=== PATIENT | female | born 1995 | race Caucasian/White ===

== ENCOUNTER 2022-05-25 19:28 | Inpatient (IN) | payer OTHER, SELFPAY ==
[2022-05-25] VITALS (27 sets, daily range): BP systolic 104–145; BP diastolic 53–97; PULSE 74–168; TEMP 36.6; O2SAT 99–100
[2022-05-25 21:52] LABS: Basophils Absolute Auto 0.1 K/mm3 (0.0-0.1); Basophils Percent Auto 0.4 % (0.2-1.2); Eosinophils Absolute Auto 0.1 K/mm3 (0-0.3); Eosinophils Percent Auto 0.6 % (0-4.4); Hematocrit 37.4 % (37.0-47.0); Hemoglobin 12.5 g/dL (12.0-15.0); Immature Granulocyte Absolute 0.28 K/mm3 (0.00-0.031); Immature Granulocyte Percent A 1.9 % (0-0.5); Lymphocytes Absolute Auto 2.38 K/mm3 (0.9-3.2); Lymphocytes Percent Auto 16.2 % (18.3-44.2); Mean Corpuscular HGB Conc 33.4 g/dl (32-36); Mean Corpuscular Hemoglobin 29.5 pg (26-34); Mean Corpuscular Volume 88.2 fl (80-100); Mean Platelet Volume 10.4 fl (7.4-10.4); Monocytes Absolute Auto 1.5 K/mm3 (0.1-0.6); Monocytes Percent Auto 9.8 % (2.6-8.5); Neutrophils Absolute Auto 10.5 K/mm3 (1.3-6.7); Neutrophils Percent Auto 71.1 % (45.5-73.1); Platelet Count Result 258 k/mm3 (150-375); Red Blood Count 4.24 M/mm3 (4.2-5.4); Red Cell Distribution Width 13.4 % (11.5-14.5); White Blood Count 14.7 K/mm3 (4.5-10.0)
[2022-05-25] MEDS: LACTATED RINGERS 1,000 ML 125 ML IV CONT ×2 (21:54→22:19)
--- NOTE | 2022-05-25 22:16 | WPDANESEPP ---
Anes - Eval Pre Procedure Procedure: Labor epidual Date/Time: 05/25/22 22:16 Surgeon: Damon Preop Diagnosis: Abd pain with contractions Pre Op Diagnosis: labor Patient Data Age: 27 Gender: F Height: Weight: Last Vital Signs Pulse 86 05/25/22 22:01 BP 132/85 05/25/22 22:01 Allergies Allergy/AdvReac Type Severity Reaction Status Date / Time No Known Allergies Allergy Mild Verified 05/23/22 08:30 Home Medications Medication Instructions Recorded Confirmed Type vitamins-iron fumarate 65 1 tablet PO DAILY 12/18/21 05/23/22 History mg iron-folic acid 1 mg tablet ferrous sulfate 325 mg (65 mg 325 mg PO DAILY 04/11/22 05/23/22 History iron) tablet Laboratory Tests 05/25/22 05/25/22 21:45 21:45 WBC 14.7 K/mm3 H K/mm3 (4.5-10.0) RBC 4.24 M/mm3 M/mm3 (4.2-5.4) Hgb 12.5 g/dL g/dL (12.0-15.0) Hct 37.4 % % (37.0-47.0) MCV 88.2 fl fl (80-100) MCH 29.5 pg pg (26-34) MCHC 33.4 g/dl g/dl (32-36) RDW 13.4 % % (11.5-14.5) Plt Count 258 k/mm3 k/mm3 (150-375) MPV 10.4 fl fl (7.4-10.4) Immature Gran % (Auto) 1.9 % H % (0-0.5) Neut % (Auto) 71.1 % % (45.5-73.1) Lymph % (Auto) 16.2 % L % (18.3-44.2) [place] % (Auto) 9.8 % H % (2.6-8.5) Eos % (Auto) 0.6 % % (0-4.4) Baso % (Auto) 0.4 % % (0.2-1.2) Lymph # (Auto) 2.38 K/mm3 K/mm3 (0.9-3.2) [place] # (Auto) 1.5 K/mm3 H K/mm3 (0.1-0.6) Eos # (Auto) 0.1 K/mm3 K/mm3 (0-0.3) Baso # (Auto) 0.1 K/mm3 K/mm3 (0.0-0.1) Abs Immat Gran (auto) 0.28 K/mm3 H K/mm3 (0.00-0.031) Absolute Neuts (auto) 10.5 K/mm3 H K/mm3 (1.3-6.7) Absolute Nucleated RBC 0.0 K/mm3 K/mm3 (0.0-0.012) Nucleated RBC % 0.0 % % (0.0-0.2) RPR Pending HCG: positive Patient hx anesthesia problems: none Family hx anesthesia problems: none Results Review: All pre-operative results and documents have been reviewed as part of the pre-operative evaluation. 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
[2022-05-26] VITALS (31 sets, daily range): BP systolic 80–128; BP diastolic 49–81; PULSE 63–126; RESP 18; TEMP 36.2–37.2; O2SAT 97–100
[2022-05-26] MEDS: ONDANSETRON INJ 4 MG/2 ML VIAL IV PUSH (01:10)
[2022-05-26] MEDS: LACTATED RINGERS 1,000 ML 125 ML IV CONT (02:05)
--- NOTE | 2022-05-26 07:11 | WPDOBADMIT ---
Obstetrics - Admit Note Admission Note: record reviewed. No pertinent additions to the history and/or any subsequent changes in the physical findings that are not consistent with the expected course of the were found. Additions to the history and/or subsequent changes in the physical findings follow. None.Here at 38 4/7 weeks in labor with SROM. Progressed well. C/P on my arrival.
--- NOTE | 2022-05-26 07:12 | PM.OBPRVD ---
OB - Delivery Note Procedure Delivery date: 05/26/22 Procedure: Induction method: None Delivery monitor: External FHT and External Uterine Route of delivery: Laceration Description: Periurethral (above urethra) and Perineal - 2nd Degree Delivery repair: vicryl (3-0 ) Specimen: Yes Quantitative Blood Loss (ml): 300 Anesthesia type: Epidural Disposition: Floor Narrative: red rubber catheter placed for laceration repair above urethra Baby Date of : 05/26/22 Weeks of gestation at delivery: 38 Infant gender: Female Weight (pounds): 6 Weight (ounces): 5 presentation: vertex position: Right Occiput Anterior Placenta delivery description: Spontaneous Cord Vessel Description: 3 Vessels, Nuchal Cord (tight-delivered through) and Delayed Cord Clamping score one minute: 9 score five minutes: 9
--- NOTE | 2022-05-26 07:14 | P.DS_ITS ---
DS: Admitting Diagnosis Discharge Date 05/27/22 Admitting Diagnosis IUP 38 4/7 wks in labor with SROM DS: Discharge Diagnosis Discharge Diagnosis (1) (normal spontaneous vaginal delivery): Code(s): O80 - Encounter for full-term uncomplicated delivery Status: Acute OB - DS: Summary OB Procedures : Ultrasound OB Procedures Intrapartum: Spontaneous Vag Delivery OB Procedures: : None Peripartum Data Delivery Method: Natural Vaginal Laceration Description: Periurethral (above urethra) and Perineal - 2nd Degree complications: none Status at Discharge Functional status at discharge: independent ambulation Overall status at discharge: patient is progressing back to baseline Time Spent with Patient Time attestation: Total time spent providing and/or coordinating discharge services: DS: Data Data Completed and Pending Labs on day of discharge: Labs from last 24 hours 05/25/22 05/25/22 05/25/22 21:45 21:45 21:45 WBC 14.7 H RBC 4.24 Hgb 12.5 Hct 37.4 MCV 88.2 MCH 29.5 MCHC 33.4 RDW 13.4 Plt Count 258 MPV 10.4 Immature Gran % (Auto) 1.9 H Neut % (Auto) 71.1 Lymph % (Auto) 16.2 L [place] % (Auto) 9.8 H Eos % (Auto) 0.6 Baso % (Auto) 0.4 Lymph # (Auto) 2.38 [place] # (Auto) 1.5 H Eos # (Auto) 0.1 Baso # (Auto) 0.1 Abs Immat Gran (auto) 0.28 H Absolute Neuts (auto) 10.5 H Absolute Nucleated RBC 0.0 Nucleated RBC % 0.0 RPR Pending Blood Type A Positive Antibody Screen Negative Discharge Plan Discharge Attending physician on discharge: Quinn Jose Discharging Clinician: Sobeida Guillen Anticipated Discharge Date/Time: 05/27/22 07:15 Patient Disposition: Home, Self-Care Activity: may shower and pelvic rest Diet: regular Patient Instructions: Antibiotic Form Stand Alone Forms: General Discharge Information Follow-up/Referrals: Quinn Jose MD [Physician] - Call for Appointment Discharge Medications: New norethindrone (contraceptive) 0.35 mg tablet 0.35 mg PO DAILY Qty: 84 0RF Rx Instructions: start in 3 weeks Continued ferrous sulfate 325 mg (65 mg iron) tablet 325 mg PO DAILY vit-iron fum-folic ac 65 mg iron- 1 mg tablet 1 tablet PO DAILY Date of admission: 05/25/22 19:28 Primary Care Provider: PHYSICIAN,FORENSIC MATERIALS ENGINEER Admitting Provider: Quinn Jose Attending physician on admission: Quinn Jose Condition: Stable
[2022-05-26] MEDS: OXYTOCIN 30 UNITS/NS 500 ML 30 UNITS/500 ML BAG 125 UNITS IV CONT (07:28)
[2022-05-26] MEDS: BENZOCAINE 20% AER SPR (*SP) 56 GM CAN 1 SPRAY TOPICAL (08:42)
[2022-05-26] MEDS: IBUPROFEN 600 MG TABLET PO ×3 (08:42→22:03)
[2022-05-26] MEDS: WITCH HAZEL 40 PADS 1 PAD TOPICAL (08:42)
--- NOTE | 2022-05-26 10:00 | OBPPTRN ---
Patient transferred to post room # 284 via (wheel chair ). Support person present. Oriented to unit, room, information board, rooming in, admission packet and security measures. Patient verbalizes understanding.
[2022-05-26] MEDS: ACETAMINOPHEN 325 MG TABLET 650 MG PO (13:17)
[2022-05-27] MEDS: IBUPROFEN 600 MG TABLET PO (04:37)
[2022-05-27] MEDS: ACETAMINOPHEN 325 MG TABLET 650 MG PO (04:37)
[2022-05-27 04:51] VITALS: BP 106/69; PULSE 85; RESP 18; TEMP 36.2; O2SAT 99
[2022-05-27 04:53] LABS: Hemoglobin 9.8 g/dL (12.0-15.0)
[2022-05-27 07:43] VITALS: BP 116/78; PULSE 88; RESP 16; TEMP 36.7; O2SAT 99
--- NOTE | 2022-05-27 09:30 | PM.OBPNVD ---
OB - PN: Subj Subjective Date/time seen: 05/27/22 09:30 Patient comments: no complaints and pain well controlled baby status: doing well and nursing well (pumping) OB - PN: Obj Data Labs CBC & Chem 7: 05/27/22 04:41 Labs: Laboratory Results - last 24 hr 05/27/22 04:41 Hgb 9.8 L Hct 28.0 L OB - PN A/P Plan day: 1 Plan: routine care, discharge home, follow up 6 weeks and other (plans micronor for bc) Time Spent With Patient Time: Total time spent is greater than 50% in coordination of care (as documented) at patient's floor/unit and/or counseling patient: Exam : Bimanual exam- vagina & uterus: other (Uterus firm, nt @U)
[2022-05-27] MEDS: POLYSACCHARIDE IRON COMPLEX 150 MG CAPSULE PO (09:40)
[2022-05-27] MEDS: MULTIVIT/MIN/PREN/FOL AC/IRON TABLET 1 TAB PO (09:41)
[2022-05-27] MEDS: DOCUSATE SODIUM 100 MG CAPSULE PO (09:41)
--- NOTE | 2022-05-27 09:43 | PC.NURSE ---
Patient viewed the discharge video Mother & Baby Care, The First Two Weeks . Patient was given the opportunity and encouraged to ask questions. Patient verbalized understanding of information shared and has been given the mother/baby guide for home reference.
[2022-05-28 07:33] LABS: Rapid Plasma Reagin Non-Reactive (NonReactive)
[2022-05-29 09:25] VITALS: BP 122/84; PULSE 89; RESP 16; TEMP 37.4; O2SAT 100
== END 2022-05-27 11:50 | disposition home or self-care (01) | DRG 807 ==
LOC: ANHLDR 05-26 07:16 → ANHOB2 05-27 09:55 → ANHLDR 05-29 13:36 → ANHOB2 05-29 13:36
PROVIDERS: Admitting Provider Obstetrics & Gynecology Gynecology; Visit Provider Obstetrics & Gynecology Gynecology
DX: O76 Abnormality in fetal heart rate and rhythm complicating labor and delivery (principal); Z37.0 Single live birth; O70.1 Second degree perineal laceration during delivery; O71.82 Other specified trauma to perineum and vulva; O69.1XX0 Labor and delivery complicated by cord around neck, with compression, not applicable or unspecified; Z3A.38 38 weeks gestation of pregnancy
CPT/HCPCS: 36415; 85014; 85018; 85025; 86592; 86850; 86900; 86901; A9270; J2405; J2590; J2795; J7120

== ENCOUNTER 2022-08-29 08:20 | Emergency (ER) | payer BC, SELFPAY ==
[2022-08-29 08:28] VITALS: BP 130/90; PULSE 114; RESP 20; TEMP 37.2; O2SAT 98
--- NOTE | 2022-08-29 08:44 | ED.EAR ---
HPI - Ear Problem General Chief complaint: Ear Stated complaint: ear infection Time Seen by Provider: 08/29/22 08:32 Source: patient and RN notes reviewed Mode of arrival: ambulatory Limitations: no limitations History of Present Illness HPI Narrative: 27-year-old female presenting for complaint of sinus congestion, left eye irritation, and left ear pain for 3 days. Reports fever last evening 101. Endorses waking with redness, swelling and crust to the left eye, denies foreign body, vision changes, photophobia, or significant pain. She flushed the eye without change. Endorses muffled hearing from left ear. Denies tinnitus, dizziness, n/v/d. Took 3 negative covid tests at home. Related Data Home Medications Medication Instructions Recorded Confirmed ferrous sulfate 325 mg (65 mg 325 mg PO DAILY 04/11/22 08/29/22 iron) tablet Allergies Allergy/AdvReac Type Severity Reaction Status Date / Time No Known Allergies Allergy Mild Verified 08/29/22 08:36 Review of Systems Review of Systems: CONSTITUTIONAL: reports malaise, chills, sweats, fever EYES: Denies visual changes, reports redness, discharge ENT: Reports rhinorrhea, congestion, sinus pain, otalgia CARDIOVASCULAR: Denies chest pain, palpitations, edema RESPIRATORY: Reports cough, post nasal drainage. Denies dyspnea GASTROINTESTINAL: Denies abdominal pain, nausea, vomiting, diarrhea SKIN: Denies rash or itching MUSCULOSKELETAL: Denies myalgia NEUROLOGIC: Denies headache PMFSH Past Medical History Medical History Anemia Anxiety Migraines Overweight (BMI 25.0-29.9) and not yet delivered Surgical History Surgical History History of tonsillectomy (11/11/09) Family History Family History Father Primary lung cancer Mother Hypertension Grandparent Heart disease Social History Social History Smoking status: Never smoker Alcohol intake: never Substance use: never Additional living arrangements comments: spouse 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 Right TM pearly escalera with normal light reflex;Left TM unable to visualize due to excess cerumen. no tragal tenderness. Oropharynx erythematous without lesions or exudate, no drooling, no hoarseness, no trismus, uvula midline. No tripod positioning, muffled voice, soft palate or pharyngeal wall bulging NECK: Supple. No lymphadenopathy CHEST: Clear to auscultation, breath sounds equal. No wheezing, rhonchi, rales, or stridor. HEART:Tachycardic and regular. No murmur heard. SKIN: Warm, dry, no rash. NEURO: Alert and oriented x3. Course Course Emergency Course: Patient is aware of diagnosis, understands and agrees to treatment plan. Anticipatory guidance given. Patient agrees to follow-up as directed and is aware of reasons to seek care at the emergency department. Portions of this record may have been created with voice recognition software Level of Care: Express Care Visit Vital Signs Vital signs: Vital Signs Temperature 98.9 F 08/29/22 08:28 Pulse Rate 114 H 08/29/22 08:28 Respiratory Rate 20 08/29/22 08:28 Blood Pressure 130/90 08/29/22 08:28 Pulse Oximetry 98 08/29/22 08:28 Oxygen Delivery Room Air 08/29/22 08:28 Temperature 98.9 F 08/29/22 08:28 Pulse Rate 114 H 08/29/22 08:28 Respiratory Rate 20
== END 2022-08-29 09:15 | disposition home or self-care (01) ==
PROVIDERS: Emergency Provider Nurse Practitioner Family
DX: J06.9 Acute upper respiratory infection, unspecified (principal); H61.22 Impacted cerumen, left ear; H10.32 Unspecified acute conjunctivitis, left eye; D64.9 Anemia, unspecified
CPT/HCPCS: 69210; 99213; G0463

== ENCOUNTER 2023-11-15 17:02 | Emergency (ER) | payer BC, SELFPAY ==
[2023-11-15 17:18] VITALS: BP 136/93; PULSE 110; RESP 18; TEMP 36.4; O2SAT 100
--- NOTE | 2023-11-15 17:26 | ED.EAR ---
HPI - Ear Problem General Chief complaint: Ear Stated complaint: bilateral ear discomfort,nasal congestion Time Seen by Provider: 11/15/23 17:08 Source: patient Mode of arrival: ambulatory Limitations: no limitations History of Present Illness HPI Narrative: Josefina is a 28-year-old female patient presenting to the clinic today with complaints of cough, nasal congestion, and bilateral ear discomfort. She reports she has had a lot of congestion since . Reports over the last week she has felt like her ears are under water. Also having some discomfort. Related Data Allergies Allergy/AdvReac Type Severity Reaction Status Date / Time No Known Allergies Allergy Mild Verified 11/15/23 17:22 Review of Systems Review of Systems: Pertinent positives per HPI. Patient denies any fever, chills, rash, headache, visual changes, dizziness, shortness of breath, chest pain, palpitations, nausea, vomiting, diarrhea, constipation, abdominal pain, or any urinary issues. PMFSH Past Medical History Medical History Anemia Anxiety Contraception management Migraines Overweight (BMI 25.0-29.9) and not yet delivered Surgical History Surgical History History of gynecological procedure (10/30/22) arben iud insertion History of tonsillectomy (11/11/09) Family History Family History Father Primary lung cancer Mother Hypertension Grandparent Heart disease Social History Social History Smoking status: Never smoker Second hand tobacco smoke exposure: No Alcohol intake: never Substance use: never Substance use type: does not use Living arrangements: other Additional living arrangements comments: Occupation/Education: occupation 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 There is no relevant family history pertinent to the patient complaint. Exam Narrative: General: Well-developed, well nourished, in no apparent distress Head: Normocephalic, atraumatic Eyes: Pupils equally round and reactive to light bilaterally, EOM intact, sclera and conjunctive clear, no discharge, lids normal Ears: TMs intact, mild bulging, congested, ear canals clear, no drainage, grossly hearing normal. Nose: Nares patent, clear nasal discharge, no inflammation, no sinus tenderness. Mouth: Oropharynx without lesions or masses, good dentition, MMM. Postnasal drip Neck: Supple, trachea midline, no enlargement of anterior or posterior cervical nodes, no thyroid masses or goiter palpable. Cardio: Regular rate and rhythm, s1 and s2 normal, no murmur appreciated. Resp: Clear to auscultation bilaterally anteriorly and posteriorly, no rhonchi, rales, wheezing or rubs Course Course Emergency Course: Portions of this record may have been created with voice recognition software. Level of Care: Express Care Visit Vital Signs Vital signs: Vital Signs Temperature 36.4 C 11/15/23 17:18 Pulse Rate 110 H 11/15/23 17:18 Respiratory Rate 18 11/15/23 17:18 Blood Pressure 136/93 H 11/15/23 17:18 Pulse Oximetry 100 11/15/23 17:18 Oxygen Delivery Room Air 11/15/23 17:18 Temperature 36.4 C 11/15/23 17:18 Pulse Rate 110 H 11/15/23 17:18 Respiratory Rate 18 11/15/23 17:18 Blood Pressure 136/93 H 11/15/23 17:18 Pulse Oximetry 100 11/15/23 17:18 Oxygen Delivery Room Air 11/15/23 17:18 Vital signs reviewed Medical Decision Making MDM Narrative
== END 2023-11-15 17:35 | disposition home or self-care (01) ==
PROVIDERS: Emergency Provider Nurse Practitioner Family; PCP Physician Assistant Medical
DX: H69.93 Unspecified Eustachian tube disorder, bilateral (principal); J06.9 Acute upper respiratory infection, unspecified
CPT/HCPCS: 99213; G0463

== ENCOUNTER 2024-04-03 10:40 | Outpatient (CLI) | payer BC, SELFPAY ==
[2024-04-03 11:25] LABS: Hematocrit 40.4 % (37.0-47.0); Hemoglobin 13.6 g/dL (12.0-15.0); Mean Corpuscular HGB Conc 33.7 g/dl (32-36); Mean Corpuscular Hemoglobin 29.9 pg (26-34); Mean Corpuscular Volume 88.8 fl (80-100); Mean Platelet Volume 9.9 fl (7.4-10.4); Platelet Count Result 316 k/mm3 (150-375); Red Blood Count 4.55 M/mm3 (4.2-5.4); Red Cell Distribution Width 13.1 % (11.5-14.5); White Blood Count 7.4 K/mm3 (4.5-10.0)
[2024-04-03 11:40] LABS: Alanine Aminotransferase 16 U/L (6-35); Albumin Level 4.7 g/dL (3.5-5.1); Alkaline Phosphatase 47 U/L (38-126); Anion Gap 8 mmol/L (4-12); Aspartate Amino Transferase 23 U/L (14-36); Bilirubin,Total 0.8 mg/dL (0.2-1.3); Blood Urea Nitrogen 12 mg/dL (7-17); CRP < 0.5 mg/dL (<1.0); Calcium 9.3 mg/dL (8.4-10.2); Carbon Dioxide 27 mmol/L (22-30); Chloride 104 mmol/L (98-107); Estimated Glomerular Filt Rate > 60; Glucose 84 mg/dL (65-110); Lipase 61 U/L (23-300); Potassium 4.2 mmol/L (3.4-5.0); Sodium 139 mmol/L (137-145)
[2024-04-03 12:04] LABS: Erythrocyte Sedimentation Rate 13 mm/hr (0-20)
[2024-04-07 18:03] LABS: Immunoglobulin A 204 mg/dL (47-310); TTG IGA AB <1.0 U/mL
== END 2024-04-03 10:41 | disposition home or self-care (01) ==
LOC: ANHLAB 10:41
PROVIDERS: PCP Emergency Medicine; Visit Provider Nurse Practitioner
DX: K58.0 Irritable bowel syndrome with diarrhea (principal)
CPT/HCPCS: 36415; 80053; 82784; 83690; 85027; 85652; 86140; 86364

== ENCOUNTER 2024-05-22 09:08 | Outpatient (CLI) | payer BC, SELFPAY ==
[2024-05-28 21:48] LABS: Calprotectin, Stool 93 mcg/g
[2024-05-29 19:34] LABS: Pancreatic Elastase, Stool >500 mcg/g
[2024-06-15 14:01] LABS: H pylori Ag Stool Not Detected
== END 2024-05-22 09:09 | disposition home or self-care (01) ==
LOC: ANHLAB 09:09
PROVIDERS: PCP Emergency Medicine; Visit Provider Nurse Practitioner
DX: R14.0 Abdominal distension (gaseous) (principal); K58.0 Irritable bowel syndrome with diarrhea; R10.13 Epigastric pain; A04.8 Other specified bacterial intestinal infections
CPT/HCPCS: 82653; 83993; 87045; 87269; 87338; 87427; 87449

== ENCOUNTER 2024-09-16 08:35 | Outpatient (CLI) | payer BC, SELFPAY | END 2024-09-16 08:36 | disposition home or self-care (01) | LOC: ANHLAB 08:35 | PROVIDERS: PCP Emergency Medicine; Visit Provider Nurse Practitioner | DX: K58.0 Irritable bowel syndrome with diarrhea (principal) | CPT/HCPCS: 83993 ==

== ENCOUNTER 2024-12-23 08:01 | Outpatient (CLI) | payer BC, SELFPAY ==
--- NOTE | ~2024-12-23 | NM_ITS ---
EXAMINATION: NM hepatobiliary wo pharm DATE: 12/23/2024 10:40 INDICATION: Postprandial abdominal cramping. Diarrhea. COMPARISON: None. TECHNIQUE: 5 mCi Tc-99m mebrofenin (Choletec) was administered intravenously. Scintigraphic images o f the abdomen were obtained for one hour. Then, the patient drank 8 oz Ensure, and imaging was contin ued for 60 minutes. FINDINGS: There is normal clearance of radiotracer from the blood pool. There is homogeneous tracer u ptake by the liver. Activity progresses to the bowel and gallbladder. Gallbladder ejection fraction (GBEF) was 60%. Note that with this technique, normal GBEF >= 33%. IMPRESSION: 1. Normal hepatobiliary scintigraphy. Reviewed, dictated and finalized at location A. K REPAIRER
--- OUTSIDE RECORDS SUMMARY | 2024-12-23 08:20 | XMS_ITS | Clinical Summary ---
Author Organization [facility] [employer] Address [address] [place] [address] Care Team Providers Care Jumpbasting Lining Baster Name Role Phone Unavailable Primary Care Provider Unavailabl e Source Comments [facility],non-owned Affiliates and Associated Physician Practices is amultiple site organization consisting of ambulatory clinics and hospital sitesin [place], [place], [place] and [place]. This disclosure is being madepursuant to the Care Everywhere program and may not contain all information available regarding this patient. Last updated 18.[facility] Allergies No known active allergies Medications Be aware that medications may not be up to date on this document. Always verify current medications with the patient. No known medications Family History Medical History Relation Name Comments High Cholesterol Father Relation Name Status Comments Father Social History Tobacco Use Types Packs/Day Years Used Date Smoking Tobacco: Never Smokeless Tobacco: Never Tobacco Cessation:Counseling Given: Not Answered Alcohol Use Standard Drinks/Week Comments Yes 0 (1 standard drink = 0.6 oz pur e alcohol) Sex and Gender Information Value Date Recorded Sex Assigned at Not on file Gender Identity Not on file Sexual Orientation Not on file Last Filed Vital Signs Vital Sign Reading Time Taken Comments Blood Pressure 118/80 08/21/2023 10:01 AM CDT Pulse - - Temperature - - Respiratory Rate - - Oxygen Saturation - - Inhaled Oxygen Concentration - - Weight 63.5 kg (140 lb) 08/21/2023 10:01 AM CDT Height 160 cm (5' 3 ) 08/21/2023 10:01 AM CDT Body Mass Index 24.8 08/21/2023 10:01 AM CDT Plan of Treatment Health Maintenance Due Date Last Done Comments PAP SMEAR 1995 HIV SCREENING 2010 HEPATITIS C SCREENING 02/17/2013 DTAP/TDAP/TD VACCINES (1 - Tdap) 2014 HEPATITIS B VACCINE (1 of 3 - 19+ 3-dose series) 2014 COVID-19 VACCINE (3 - 2023-2 5 season) 2024 05/02/2021, 04/06/2021 INFLUENZA VACCINE (#1) 2024 DEPRESSION SCREENING 11/11/2024 ZOSTER VACCINE (1 of 2) 2045 HIB VACCINE Aged Out No longer eligi ble based on patient's age to complete this topic HPV VACCINE Aged Out No longer eligi ble based on patient's age to complete this topic MENINGOCOCCAL (Group B) VACCINE Aged Out No longer eligible b ased on patient's age to complete this topic MENINGOCOCCAL VACCINE Aged Out No juliana mi eligible based on patient's age to complete this topic PNEUMOCOCCAL VACCINE Aged Out No long er eligible based on patient's age to complete this topic
--- OUTSIDE RECORDS SUMMARY | 2024-12-23 08:20 | XMS_ITS | Patient Health Summary ---
Author Organization [facility] [employer] Address [address] [place] [address] Care Team Providers Care Genetic Supervisor Name Role Phone Unavailable Primary Care Provider Unavailabl e Note from [facility] [employer] [facility],non-owned Affiliates and Associated Physician Practices is amultiple site organization consisting of ambulatory clinics and hospital sitesin [place], [place], [place] and [place]. This disclosure is being madepursuant to the Care Everywhere program and may not contain all information available regarding this patient. Last updated 18.[facility] [employer] Allergies No known active allergies Medications Be aware that medications may not be up to date on this document. Always verify current medications with the patient. No known medications Social History Tobacco Use Types Packs/Day Years [...] Mass Index 24.8 08/21/2023 10:01 AM CDT Procedures * SONOGRAM - COMPLETE(Performed 01/29/2022) Performed for Encounter for anatomic survey (HCC), 21 weeks gestation of (HCC) Results * SONOGRAM - COMPLETE (01/29/2022 8:16 AM CDT) Anatomical Region Laterality Modality Other 01/29/2022 8:16 AM CDT Narrative 01/29/2022 9:19 AM CDT [facility] PHONE: FAX: Pat. Name: DUYEN JOHNSON. No: [id number] Study Date: 01/29/2022 8:16am , Age: 04 1995, 26 Pregnancies: 1 Height: 63 in Weight: 143 lb LMP: 08/31/2021 GA by LMP: 21w4d GA by US: 21w6d BRAIN: 06/05/2022 GA Selected: 21w4d (LMP) BRAIN: 06/07/2022 Referring MD: Quinn Jose MD Envelope Addresser: Rayna Stephens RDMS CPT4: 74270 BMI: 25.33 Hist/Ind: Suboptimal Heart Images on Outside Scan MEASUREMENTS & AGE GROWTH EVALUATION Measurement GA Range Srce %for GA Ratios ----- ---- ------- BPD 5.4 cm 22w3d (45e9y-73j3b) Hadl BPD 80% FL/BPD 0.68 HC 19.4 cm 21w4d (85g2m-28e9w) Hadl HC 41% FL/AC 0.22 AC 16.4 cm 21w3d (09w1u-59n1b) Hadl AC 37% HC/AC 1.18 (1.05 - 1.24) FL 3.7 cm 21w5d (39e7m-57d0x) Hadl FL 43% CI 0.80 (0.70 - 0.86) HL 3.5 cm 22w1d (49s6n-75b2q) Abundio HL 58% Cere 2.4 cm 22w0d (72k5n-76u3a) Nicholas Cere61% GA for sonogram 21w6d (34w5b-20f2g) Weight Estimate: based on (BPD,HC,AC,FL) Avg Weight: 436 gm (372-499gm) Hadloc : 0lbs, 15oz Normal: 447 gm (335-558gm) Hadloc Wt% 44% for 21w4d EVAL, PLACENTA Presentation: cephalic Umbilical Cord: 3 Vessels Placenta: posterior Amniotic Fluid Volume: normal Anatomy!Normal!Abnormal!Suboptimal!Prev. Seen!Comments Cranium ! x ! ! ! ! Mdl (CSP/Thal! x ! ! ! ! Ventricles ! x ! ! ! ! Choroid Plexu! x ! ! ! ! Cerebellum ! x ! ! ! ! Cerebellar Ve! x ! ! ! ! Cisterna M. ! x ! ! ! ! Nuchal Fold ! x ! ! ! ! Orbits ! x ! ! ! ! Profile ! x ! ! ! ! Nasal Bone ! x ! ! ! ! Lip ! x ! ! ! ! Maxilla ! x ! ! ! ! Mandible ! x ! ! ! ! Neck ! x ! ! ! ! Spine ! x ! ! ! ! Lungs ! x ! ! ! ! 4 Chamber Hea! x ! ! ! ! LVOT ! x ! ! ! ! RVOT ! x ! ! ! ! 3 Vessel View! x ! ! ! ! 3 Vessel Trac! x ! ! ! ! Cross-over ! x ! ! ! ! Ductal Arch ! x ! ! ! ! Aortic Arch ! x ! ! ! ! Caval View ! x ! ! ! ! Situs ! x ! ! ! ! Diaphragm ! x ! ! ! ! Stomach ! x ! ! ! ! Liver ! x ! ! ! ! Bowel ! x ! ! ! ! Kidneys ! x ! ! ! ! Bladder ! x ! ! ! ! 3 Vessel Cord! x ! ! ! ! Cord In! x ! ! ! ! Upper Extremi! x ! ! ! ! Hands ! x ! ! ! ! Lower Extremi! x ! ! ! ! Feet ! x ! ! ! ! External Gilda! x ! ! ! !Female Placental Cor! x ! ! ! ! CLINICAL SUMMARY Study Number: 1 A single fetus is seen in cephalic presentation. The measurements today are consistent with appropriate interval growth. The BRAIN is based on her LMP and a prior ultrasound examination. The amniotic fluid volume is within normal limits. anatomy was technically adequate. No major malformations were seen within the limitations of ultrasound. IMPRESSION: Single, live, intrauterine at 21w4d size is consistent with established BRAIN Amniotic fluid volume: within normal limits RECOMMEND: Follow up as clinically indicated Thank you for allowing us the opportunity to care for your patient Anselmo Light MD <Electronic Signature> 01/29/2022 09:19am Fidelia Briones MD [facility] ORDERABLES
--- OUTSIDE RECORDS SUMMARY | 2024-12-23 08:20 | XMS_ITS | Referral Summary ---
Author Organization [facility] Address [address] [place] [address] Care Team Providers Care Cooperative Education Director Name Role Phone Unavailable Primary Care Provider Unavailabl e Source Comments [facility],non-owned Affiliates and Associated Physician Practices is amultiple site organization consisting of ambulatory clinics and hospital sitesin [place], [place], [place] and [place]. This disclosure is being madepursuant to the Care Everywhere program and may not contain all information available regarding this patient. Last updated 18.[facility] Allergies No known active allergies Medications Be [...] 08/21/2023 10:01 AM CDT Plan of Treatment Not on file
== END 2024-12-23 08:02 | disposition home or self-care (01) ==
PROVIDERS: PCP Emergency Medicine; Visit Provider Nurse Practitioner
DX: K58.0 Irritable bowel syndrome with diarrhea (principal); R14.0 Abdominal distension (gaseous); K21.9 Gastro-esophageal reflux disease without esophagitis
CPT/HCPCS: 78226; A9537

== ENCOUNTER 2024-12-31 07:40 | Outpatient (CLI) | payer BC, SELFPAY ==
--- NOTE | ~2024-12-31 | US_ITS ---
Limited Abdominal Sonogram: Real-time sonographic imaging of the right upper quadrant was performed. Clinical History: Irritable bowel syndrome, diarrhea Findings: The liver appears normal with no evidence of mass lesion or bile duct dilatation. Main por quynh vein demonstrates normal direction of flow. The gallbladder is well distended, and demonstrates 2 mm gallbladder wall polyp. The common bile duct measures 2 mm. The visualized pancreas, aorta, and IVC are unremarkable. Impression: 2 mm gallbladder wall polyp. Reviewed, dictated and finalized at location . 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
--- OUTSIDE RECORDS SUMMARY | 2024-12-31 07:48 | XMS_ITS | Clinical Summary ---
Author Organization [facility] [employer] Address [address] [place] [address] Care Team Providers Care Band Bias Machine Operator Name Role Phone Unavailable Primary Care Provider Unavailabl e Source Comments [facility] [employer],non-owned Affiliates and Associated Physician Practices is amultiple site organization consisting of ambulatory clinics and hospital sitesin [place], [place], [place] and [place]. This disclosure is being madepursuant to the Care Everywhere program and may not contain all information available regarding this patient. Last updated 18.[facility] [employer] Allergies No known active allergies Medications Be [...]
--- OUTSIDE RECORDS SUMMARY | 2024-12-31 07:48 | XMS_ITS | Referral Summary ---
Author Organization [facility] [employer] Address [address] 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 This disclosure is being madepursuant to the Care Everywhere program and may not contain all information available regarding this patient. Last updated 18.[facility] [employer] Allergies No known active allergies Medications Be [...]
--- OUTSIDE RECORDS SUMMARY | 2024-12-31 07:48 | XMS_ITS | Patient Health Summary ---
Author Organization [facility] [employer] Address [address] [place] [address] Care Team Providers Care Director Veterinary Name Role Phone Unavailable Primary Care Provider Unavailabl e Note from [facility] [employer] [facility],non-owned Affiliates and Associated Physician Practices is amultiple site organization consisting of ambulatory clinics and hospital sitesin [place], [place], [place] and [place]. This disclosure is being madepursuant to the Care Everywhere program and may not contain all information available regarding this patient. Last updated 18.[facility] [employer] Allergies No known active allergies Medications Be [...] PHONE: FAX: Pat. Name: DUYEN JOHNSON. No: [id number] Study Date: 01/29/2022 8:16am , Age: 04 1995, 26 Pregnancies: 1 Height: 63 in Weight: 143 lb LMP: 08/31/2021 GA by LMP: 21w4d GA by US: 21w6d BRAIN: 06/05/2022 GA Selected: 21w4d (LMP) BRAIN: 06/07/2022 Referring MD: Quinn Jose MD Senior Reservoir Engineer: Rayna Stephens RDMS CPT4: 10940 BMI: 25.33 Hist/Ind: Suboptimal Heart Images on Outside Scan MEASUREMENTS & AGE GROWTH EVALUATION Measurement GA Range Srce %for GA Ratios ----- ---- ------- BPD 5.4 cm 22w3d ([id number]) Hadl BPD 80% FL/BPD 0.68 HC 19.4 cm 21w4d (63k2u-32d3n) Hadl HC 41% FL/AC 0.22 AC 16.4 cm 21w3d ([id number]-13z9q) Hadl AC 37% HC/AC 1.18 (1.05 - 1.24) FL 3.7 cm 21w5d (69o2g-32e7y) Hadl FL 43% CI 0.80 (0.70 - 0.86) HL 3.5 cm 22w1d (01p6k-55o2p) Abundio HL 58% Cere 2.4 cm 22w0d (44c5c-75q5s) Nicholas Cere61% GA for sonogram 21w6d (98d2a-83h9v) Weight Estimate: based on (BPD,HC,AC,FL) Avg Weight: [...] <Electronic Signature> 01/29/2022 09:19am Fidelia Briones MD [facility] ORDERABLES
== END 2024-12-31 07:41 | disposition home or self-care (01) ==
PROVIDERS: PCP Emergency Medicine; Visit Provider Nurse Practitioner
DX: K58.0 Irritable bowel syndrome with diarrhea (principal); K82.4 Cholesterolosis of gallbladder; K21.9 Gastro-esophageal reflux disease without esophagitis
CPT/HCPCS: 76705

== ENCOUNTER 2025-01-25 00:25 | Day surgery (SDC) | payer BC, SELFPAY ==
[2025-01-12 14:27] VITALS: BMI 25.0
--- OUTSIDE RECORDS SUMMARY | 2025-01-25 00:28 | XMS_ITS | Patient Health Summary ---
Author Organization [facility] [employer] Address [address] [place] [address] Care Team Providers Care High Pressure Operator Name Role Phone Unavailable Primary Care Provider Unavailabl e Note from [facility] [employer] [facility],non-owned Affiliates and Associated Physician Practices is amultiple site organization consisting of ambulatory clinics and hospital sitesin [place], [place], [place] and [place]. This disclosure is being madepursuant to the Care Everywhere program and may not contain all information available regarding this patient. Last updated 18.[facility] [employer] Allergies No known active allergies Medications Be [...] PHONE: FAX: Pat. Name: DUYEN JOHNSON. No: [id number] Study Date: 01/29/2022 8:16am , Age: 04 1995, 26 Pregnancies: 1 Height: 63 in Weight: 143 lb LMP: 08/31/2021 GA by LMP: 21w4d GA by US: 21w6d BRAIN: 06/05/2022 GA Selected: 21w4d (LMP) BRAIN: 06/07/2022 Referring MD: Quinn Jose MD Construction Project Mgr: Rayna Stephens RDMS CPT4: 76296 BMI: 25.33 Hist/Ind: Suboptimal Heart Images on Outside Scan MEASUREMENTS & AGE GROWTH EVALUATION Measurement GA Range Srce %for GA Ratios ----- ---- ------- BPD 5.4 cm 22w3d ([id number]) Hadl BPD 80% FL/BPD 0.68 HC 19.4 cm 21w4d ([id number]-76x0b) Hadl HC 41% FL/AC 0.22 AC 16.4 cm 21w3d (12t1y-00a6q) Hadl AC 37% HC/AC 1.18 (1.05 - 1.24) FL 3.7 cm 21w5d (42d0i-40z2j) Hadl FL 43% CI 0.80 (0.70 - 0.86) HL 3.5 cm 22w1d ([id number]-81j5l) Abundio HL 58% Cere 2.4 cm 22w0d (22e8c-50o1y) Nicholas Cere61% GA for sonogram 21w6d (11k3r-85r4m) Weight Estimate: based on (BPD,HC,AC,FL) Avg Weight: [...] <Electronic Signature> 01/29/2022 09:19am Fidelia Briones MD [facility] ORDERABLES
--- OUTSIDE RECORDS SUMMARY | 2025-01-25 00:28 | XMS_ITS | Clinical Summary ---
Author Organization [facility] [employer] Address [address] [place] [address] Care Team Providers Care Health It Specialist Name Role Phone Unavailable Primary Care Provider Unavailabl e Source Comments [facility] [employer],non-owned Affiliates and Associated Physician Practices is amultiple site organization consisting of ambulatory clinics and hospital sitesin [place], [place], [place] and [place]. This disclosure is being madepursuant to the Care Everywhere program and may not contain all information available regarding this patient. Last updated 18.[facility] [employer] Allergies No known active allergies Medications Be [...] complete this topic MENINGOCOCCAL (Group B) VACCINE SHARED DECISION-MAKING Aged Out No longer eligible based on patient's age to complete this topic MENINGOCOCCAL GROUPS A/C/Y/W VACCINE Aged Out No longer eligible b ased on patient's age to complete this topic PNEUMOCOCCAL VACCINE Aged Out No long er eligible based on patient's age to complete this topic
--- OUTSIDE RECORDS SUMMARY | 2025-01-25 00:28 | XMS_ITS | Referral Summary ---
Author Organization [facility] Address [address] [place] [address] Care Team Providers Care Greens Picker Name Role Phone Unavailable Primary Care Provider Unavailabl e Source Comments [facility],non-owned Affiliates and Associated Physician Practices is amultiple site organization consisting of ambulatory clinics and hospital sitesin [place], [place], [place] and [place]. This disclosure is being madepursuant to the Care Everywhere program and may not contain all information available regarding this patient. Last updated 18.[facility] Allergies No known active allergies Medications Be [...]
--- NOTE | 2025-01-25 07:17 | P.PNAN_ITS ---
Anes - Initial Pre Proc Eval Procedure: Operation Date: 01/25/25 08:30 Proposed Procedures p Esophagogastroduodenoscopy & Colonoscopy - Adán Kothari MD Date/Time: 01/25/25 07:17 Surgeon: Adán Kothari MD Pre Op Diagnosis: IBS,Abdominal distension,GERD Patient Data Age: 29 Gender: F Height: 1.6 m Weight: 64 kg Allergies Allergy/AdvReac Type Severity Reaction Status Date / Time No Known Allergies Allergy Mild Verified 01/25/25 07:17 Home Medications ?Medication ?Instructions ?Recorded ?Confirmed ?Type rimegepant 75 mg disintegrating 75 mg PO ONCE PRN migraine 09/29/24 01/12/25 Rx tablet (Nurtec ODT) headache #3 tabs omeprazole 20 mg capsule,delayed 20 mg PO DAILY 10/12/24 01/12/25 History release dicyclomine 10 mg capsule 10 mg PO QID #120 caps 10/23/24 01/12/25 Rx naratriptan 1 mg tablet See Rx Instructions PO .COMPLEX 12/04/24 01/12/25 Rx #10 tabs Patient hx anesthesia problems: none Family hx anesthesia problems: none Results Review: All pre-operative results and documents have been reviewed as part of the pre- operative evaluation. COUNTS INCLUDE 234 BEDS AT [facility] Past Medical History Medical History (Updated 01/25/25 @ 07:18 by Anselmo Gonzalez MD) Contraception management Anemia Migraines and not yet delivered Anxiety Surgical History Surgical History History of gynecological procedure (10/30/22) arben iud insertion History of tonsillectomy (11/11/09) Family History Family History Father Primary lung cancer Mother Hypertension Grandparent Heart disease Social History Social History Smoking status: Never smoker Second hand tobacco smoke exposure: No Alcohol intake: current Alcohol use details: occasionally Substance use: never Substance use type: does not use Do You Feel Safe in your Home?: Yes Lack of Transportation: No Lack of Food: Never True Current Housing: I Have Housing Concerned About Future Housing: No Difficulty Paying Gas/Electric Bills: No Difficulty Paying for Meds: No Currently Unemployed: No Education: Bachelor's Degree Difficulty w/ Childcare or Family Care: No Living arrangements: with family Additional living arrangements comments: Occupation/Education: occupation 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 Gender identity (if verbalized by the patient): Female Sexual Orientation (if Verbalized by the Patient): Straight or Heterosexual Spiritual care concerns: No Anes - Eval Final PreProcedure Day of Procedure 01/25/25 07:17 Patient weight: normal Heart: regular rate and rhythm Lungs: clear to auscultation Airway: Mallampati scale class II Neurological: alert and oriented Last oral intake: >/= 8 hours ASA classification: II Emergent: no Anesthetic plan: proceed Anesthesia type and monitoring: general GIVS and standard monitoring Results Review: All pre-operative results and documents have been reviewed as part of the pre- operative evaluation. Informed Consent: The patient's anesthetic plan and its attendant risks and benefits were discussed with the patient/family/POA. Questions were solicited and answers p rovided to the satisfaction of the patient/family/POA.
[2025-01-25 07:19] VITALS: BP 119/88; PULSE 91; RESP 20; TEMP 36.5; O2SAT 97
[2025-01-25] MEDS: LACTATED RINGERS 1,000 ML 150 ML IV CONT (07:32)
--- NOTE | 2025-01-25 08:29 | PM.HPGS ---
History of Present Illness History of Present Illness Consent: Risks, benefits, and alternatives have been discussed and questions answered. Patient agrees to proceed with procedure. Chief complaint: IBS,Abdominal distension,GERD Narrative: Josefina Johnson is a 29 year old female here for first egd and colonoscopy, WBC, HGB, CRP and ESR were normal. TSH 10/2023 was normal at 1.64. Stool calprotectin May of 2024 was 93. We repeated stool calprotectin in September 2024 and it was less than 5. Stool pancreatic elastase was greater than 500, stool H pylori was negative, IgA was 204, tTG IgA was <1. Review of Systems Review of Systems: All systems reviewed & are unremarkable except as noted in HPI and below PMFSH Past Medical History Medical History (Updated 01/25/25 @ 07:18 by Anselmo Gonzalez MD) Contraception management Anemia Migraines and not yet delivered Anxiety Surgical History Surgical History History of gynecological procedure (10/30/22) arben iud insertion History of tonsillectomy (11/11/09) Family History Family History Father Primary lung cancer Mother Hypertension Grandparent Heart disease Social History Social History Smoking status: Never smoker Second hand tobacco smoke exposure: No Alcohol intake: current Alcohol use details: occasionally Substance use: never Substance use type: does not use Do You Feel Safe in your Home?: Yes Lack of Transportation: No Lack of Food: Never True Current Housing: I Have Housing Concerned About Future Housing: No Difficulty Paying Gas/Electric Bills: No Difficulty Paying for Meds: No Currently Unemployed: No Education: Bachelor's Degree Difficulty w/ Childcare or Family Care: No Living arrangements: with family Additional living arrangements comments: Occupation/Education: occupation 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 Gender identity (if verbalized by the patient): Female Sexual Orientation (if Verbalized by the Patient): Straight or Heterosexual Spiritual care concerns: No Meds Home Medications and Allergies Home Medications ?Medication ?Instructions ?Recorded ?Confirmed ?Type rimegepant 75 mg disintegrating 75 mg PO ONCE PRN migraine 09/29/24 01/25/25 Rx tablet (Nurtec ODT) headache #3 tabs omeprazole 20 mg capsule,delayed 20 mg PO DAILY 10/12/24 01/25/25 History release dicyclomine 10 mg capsule 10 mg PO QID #120 caps 10/23/24 01/12/25 Rx naratriptan 1 mg tablet See Rx Instructions PO .COMPLEX 12/04/24 01/12/25 Rx #10 tabs Allergies Allergy/AdvReac Type Severity Reaction Status Date / Time No Known Allergies Allergy Mild Verified 01/25/25 07:17 Vital Signs Vital Signs - 24 hr 01/25/25 07:19 Temperature 97.7 F Pulse Rate 91 Respiratory Rate 20 Blood Pressure 119/88 Pulse Oximetry 97 Oxygen Delivery Room Air Exam Const: General: comfortable and no acute distress HENMT: Face/Nose/Sinus: Normal nares present Eyes: General: appearance normal, both eyes and all related structures Neck: Neck: no JVD Resp: Auscultation: clear to auscultation bilaterally Cardio: Rate: regular rate Rhythm: regular rhythm GI: Inspection: non-distended GI Palp: Yes Soft to palpation Skin: General skin exam: normal color Neuro: General: gait normal Speech: normal speech Extrem: General: normal to inspection Psych: Mental Status: mental status grossly normal Assessment and Plan Assessment and plan (1) Postprandial abdominal bloating: Code(s): R14.0 - Abdominal distension (gaseous) Status: Acute Assessment and Plan: egd with bx (2) Irritable bowel syndrome with diarrhea: Code(s): K58.0 - Irritable bowel syndrome with diarrhea Status: Acute Assessment and Plan: colonoscopy with bx
[2025-01-25] MEDS: BENZOCAINE (*SP) 60 ML SPRAY CAN (HURRICAINE) 1 SPRAY MUCOUS MEM (08:45)
[2025-01-25 08:46] LABS: BEDSIDEPREGUCG Negative (Negative)
--- NOTE | 2025-01-25 08:52 | SUR.OPER ---
EGD end time: 839, Colonoscopy start time: 844
[2025-01-25 08:59] VITALS: BP 98/67; PULSE 80; RESP 15; O2SAT 100
[2025-01-25 09:09] VITALS: BP 104/76; PULSE 78; RESP 21; O2SAT 100
[2025-01-25 09:19] VITALS: BP 104/76; PULSE 70; RESP 18; O2SAT 100
== END 2025-01-25 09:30 | disposition home or self-care (01) ==
PROVIDERS: PCP Nurse Practitioner Family; Referring Provider Nurse Practitioner; Visit Provider Internal Medicine Gastroenterology
PROC: 0DJ08ZZ Inspection of Upper Intestinal Tract, Via Natural or Artificial Opening Endoscopic (ICD-10-PCS; CPT 45378; principal; 2025-01-25 08:30)
DX: K58.0 Irritable bowel syndrome with diarrhea (principal); K29.50 Unspecified chronic gastritis without bleeding; K64.8 Other hemorrhoids; D64.9 Anemia, unspecified; F41.9 Anxiety disorder, unspecified; Z98.890 Other specified postprocedural states; Z80.1 Family history of malignant neoplasm of trachea, bronchus and lung; Z82.49 Family history of ischemic heart disease and other diseases of the circulatory system
CPT/HCPCS: 43239; 45380; 88305; J2003; J2704; J7120